=== PATIENT | female | born 1985 | race Caucasian/White ===

== ENCOUNTER 2019-04-08 19:08 | Emergency (ER) | payer SELFPAY ==
[~2019-04-08] VITALS: Ht 157.5 cm; Wt 75.3 kg
[~2019-04-08 19:08] MED LIST: CIPR500T4 PO; FAMO-96 PO; IBUP800T48 PO; TYL500 PO; ZOF8 PO
[2019-04-08 19:10] VITALS: Ht 157.5 cm; Wt 75.3 kg
--- NOTE | 2019-04-08 20:40 | ERD ---
ER Documentation Chief Complaint Chief Complaint AP X'S 2 DAYS, PT THINKS SHE MAY BE HPI 33-year-old female, presents the emergency department, concerned about a possible . The patient is G1, P1 with LMP 11/24/2018. She denies vaginal bleeding, she reports mild intermittent cramping pelvic pain. Otherwise, no diarrhea or constipation, no vaginal discharge. ROS All systems reviewed and are negative except as per history of present illness. Medications Home Meds Active Scripts Ibuprofen* (Motrin*) 400 Mg Tab, 400 MG PO Q6H PRN for PAIN AND OR ELEVATED TE MP, #20 TAB Prov:RAYNE ESTRADA MD 04/08/19 Acetaminophen* (Tylenol*) 500 Mg Tab, 500 MG PO Q4H PRN for MILD PAIN LEVEL 1-3, #14 TAB Prov:TALA COOLEY MD 12/15/15 Ondansetron Hcl* (Zofran* ODT) 8 mg -ODT Tab.disper, 8 MG PO Q6 PRN for NAUSEA AND/OR VOMITING, #10 TAB Prov:TALA COOLEY MD 12/15/15 Famotidine* (Pepcid*) 20 Mg Tablet, 20 MG PO BID for 14 Days, TAB Prov:TALA COOLEY MD 12/15/15 Ibuprofen* (Motrin*) 800 Mg Tab, 800 MG PO Q6H PRN for PAIN AND OR ELEVATED TEMP, #30 TAB Prov:CY SYED PA-C 07/30/15 Ciprofloxacin Hcl* (Ciprofloxacin Hcl*) 500 Mg Tablet, 500 MG PO BID for 14 Days, TAB Prov:MILAN LEDBETTER DO 07/06/15 Allergies Allergies: Coded Allergies: No Known Allergy (Unverified , 12/15/15) PMhx/Soc Medical and Surgical Hx: pt denies Surgical Hx History of Surgery: Yes () Anesthesia Reaction: No Hx Neurological Disorder: No Hx Respiratory Disorders: No Hx Cardiac Disorders: No Hx Psychiatric Problems: No Hx Miscellaneous Medical Probl: No Hx Alcohol Use: No Hx Substance Use: No Hx Tobacco Use: No Smoking Status: Never smoker FmHx Family History: No diabetes, No coronary disease Physical Exam Vitals Vital Signs Date Temp Pulse Resp B/P (MAP) Pulse Ox O2 O2 Flow FiO2 Time Delivery Rate 04/08/19 98.6 86 18 124/78 99 Room Air 22:25 (93) 04/08/19 99.3 108 18 142/89 98 19:10 (106) Physical Exam Patient alert, oriented, vital signs stable. HEAD: Normocephalic, atraumatic. EYES: PERRLA, EOMI, Sclera and conjunctiva appear normal. NOSE: Clear and patent nostrils. EARS: Canals clear, tympanic membranes WNL. MOUTH: normal lips and tongue, no oral lesions. THROAT: Normal oropharynx, no tonsillar exudates. NECK: Supple, No lymphadenopathy. Full ROM without pain or tenderness. HEART: RRR, no rubs, murmurs, clicks or gallops. LUNGS: Clear to auscultation. ABDOMEN: Soft, non-tender without masses or hepatosplenomegaly. EXTREMITIES: No edema bilaterally. BACK: Full ROM, no deformity, normal back exam NEURO: Cranial nerves grossly intact, no motor or sensory deficit SKIN: No rashes, no petechia. Result Diagram: 04/08/192051 Results 24 hrs Laboratory Tests Test 04/08/19 20:52 04/08/19 21:03 04/08/19 21:05 White Blood Count 8.5 10^3/ul Red Blood Count 4.59 10^6/ul Hemoglobin 13.6 g/dl Hematocrit 38.9 % Mean Corpuscular Volume 84.7 fl Mean Corpuscular Hemoglobin 29.6 pg Mean Corpuscular 35.0 g/dl Hemoglobin Concent Red Cell Distribution Width 11.8 % Platelet Count 243 10^3/UL Mean Platelet Volume 9.9 fl Immature Granulocytes % 0.200 % Neutrophils % 53.8 % Lymphocytes % 35.3 % Monocytes % 6.1 % Eosinophils % 3.8 % Basophils % 0.8 % Nucleated Red Blood Cells % 0.0 /100WBC Immature Granulocytes # 0.020 10^3/ul Neutrophils # 4.6 10^3/ul Lymphocytes # 3.0 10^3/ul Monocytes # 0.5 10^3/ul Eosinophils # 0.3 10^3/ul Basophils # 0.1 10^3/ul Nucleated Red Blood Cells # 0.0 10^3/ul Beta HCG, Quantitative < 2.4 mIU/ml POC Beta HCG, Qualitative NEGATIVE Bedside Urine pH (LAB) 6.0 Bedside Urine Protein (LAB) Negative Bedside Urine Glucose (UA) Negative Bedside Urine Ketones (LAB) Negative Bedside Urine Blood 1+ Bedside Urine Nitrite (LAB) Negative Bedside Urine Leukocyte Esterase Negative (L Procedures/MDM Vital signs stable, Physical exam unremarkable. Differential diagnosis include but not limited to: Secondary amenorrhea, , thyroid disease. Physical examination and clinical presentation most likely consistent with secondary amenorrhea During the ED course the patient remained hemodynamically stable and asymptomat ic. Results and clinical impression discussed with patient who agrees with management. The patient is stable to be treated outpatient and will be discharged home with follow-up in 2 days with her primary physician. Disclaimer: Inadvertent spelling and grammatical errors are likely due to EHR/d ictation software use and do not reflect on the overall quality of patient care. Also, please note that the electronic time recorded on this note does not necessarily reflect the actual time of the patient encounter. Departure Diagnosis: Primary Impression: Amenorrhea, unspecified Additional Impression: Encounter for test with result negative Condition: Stable Additional Instructions: Muchas gracia por [facility] para fam servicio. Esperamos que en fam visita a la shashank de emergencia fam problema medico haya sido solucionado y que se sienta mucho mejor. Para estar seguros que fam mejoria sigue en proceso, le pedimos el favor de hacer qi jairo de seguimiento medico con fam doctor primario en los proximos 2-4 cintron. Lleve con usted estos documentos y las medicinas recetadas. Si mendoza sintomas empeoran, NO SE ESPERE, por favor regrese a shashank de emergencia INMEDIATAMENTE. En santo que usted no tenga un mdico de atencin primaria: Llame al mdico o clnica comunitaria de referencia que aparece abajo gabrielle las horas de consultorio para hacer qi jairo para que le vean. CLINICAS: [facility] [phone] [facility] [phone] [id number] [facility] [phone] [facility] [phone] [facility] [phone] [facility]. [phone] RAYNE BOBBY MD Apr 08, 2019 20:40
[2019-04-08] MEDS ORDERED: IBUP-1561 PO (21:50)
[2019-04-08 22:25] VITALS: BP 124/78; PULSE 86; RESP 18
== END 2019-04-08 22:25 | disposition home or self-care (01) ==
LOC: FTE 19:08
DX: N91.2 Amenorrhea, unspecified (principal); Z32.02 Encounter for pregnancy test, result negative
CPT/HCPCS: 36415; 81003; 81025; 84702; 85025; 99283